=== PATIENT | female | born 1980 | race Caucasian/White ===

== ENCOUNTER → 2023-06-13 | Outpatient (CLI) | payer OTHER ==
--- NOTE | 2023-06-13 21:32 | NM ---
EXAMINATION TYPE: NM hepatobiliary w EF DATE OF EXAM: 06/13/2023 COMPARISON: NONE CLINICAL INDICATION: Female, 43 years old with history of R10.11 RIGHT UPPER QUADRANT PAIN; TECHNIQUE: After the intravenous administration of 4.6 mCi Tc 99m Mebrofenin hepatobiliary scintigrap hy is performed. Immediate images post injection. FINDINGS: There is satisfactory initial accumulation of tracer by the liver. The gallbladder is visualized wit hin 4 minutes. The small bowel activity is noted within 20 minutes. At one hour 8 ounces of oral en sure plus is given to mimic CCK and gallbladder ejection fraction is calculated at 86 %, slightly leonor vated above the expected range (35-80%). IMPRESSION: 1. No scintigraphic evidence for acute/chronic cholecystitis or biliary dyskinesia. 2. Increased gallbladder fraction of 86% may be seen with gallbladder hyperkinesis.
== END | disposition home or self-care (01) ==
LOC: RADNMMAIN 12:45
PROVIDERS: ATTEND Family Medicine
DX: K82.8 Other specified diseases of gallbladder (principal)
CPT/HCPCS: 78226; A9537